=== PATIENT | female | born 1975 | race Hispanic/Latino ===

== ENCOUNTER → 2017-05-31 | Outpatient (CLI) | payer OTHER ==
[~2017-05-31] MED LIST: LIDOCAINE HCL 1% LOCAL INJ 20 ML VIAL ONE
--- NOTE | 2017-05-31 12:44 | Diagnostic Imaging Report ---
PROCEDURE:LUMBAR PUNCTURE COMPARISON:None. 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 Total fluoroscopy time: 0.2 minutes Consultations: No immediate Estimated blood loss: Minimal Blood products administered: None Specimens: 16 cc of cerebrospinal fluid Implants/grafts: None FINDINGS:Informed consent was obtained and documented in the medical record after discussion of risks and benefits. The [employer] radiograph was obtained showing 5 nonrib-bearing lumbar vertebral bodies with no acute osseous abnormalities and relatively preserved intervertebral disc spaces. The patient was placed in the prone position on the fluoroscopy table. The lower back was prepped and draped using usual sterile technique. Local anesthesia was achieved with lidocaine 1%. Using fluoroscopic guidance, a 22 G spine needle was inserted at the L3-L4 intervertebral level until the needle reached the spinal canal with return of clear CSF. Opening pressure is estimated at 14 cm of H20. 16 cc of clear CSF were obtained, and placed into sterile containers and sent to the laboratory for analysis. The needle was removed and a sterile dressing was applied. The patient tolerated the procedure well without immediate complications. CONCLUSION:Successful fluoroscopic guided lumbar puncture. Opening pressure estimated at 14 cm of water. Dictated by: Atul Tuttle M.D. on 05/31/2017 at 12:53 Electronically approved by: Atul Tuttle M.D. on 05/31/2017 at 12:53
--- NOTE | 2017-05-31 12:44 | Diagnostic Imaging Report ---
PROCEDURE:LUMBAR PUNCTURE COMPARISON:None. 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 Total fluoroscopy time: 0.2 minutes Consultations: No immediate Estimated blood loss: Minimal Blood products administered: None Specimens: 16 cc of cerebrospinal fluid Implants/grafts: None FINDINGS:Informed consent was obtained and documented in the medical record after discussion of risks and benefits. The [employer] radiograph was obtained showing 5 nonrib-bearing lumbar vertebral bodies with no acute osseous abnormalities and relatively preserved intervertebral disc spaces. The patient was placed in the prone position on the fluoroscopy table. The lower back was prepped and draped using usual sterile technique. Local anesthesia was achieved with lidocaine 1%. Using fluoroscopic guidance, a 22 G spine needle was inserted at the L3-L4 intervertebral level until the needle reached the spinal canal with return of clear CSF. Opening pressure is estimated at 14 cm of H20. 16 cc of clear CSF were obtained, and placed into sterile containers and sent to the laboratory for analysis. The needle was removed and a sterile dressing was applied. The patient tolerated the procedure well without immediate complications. CONCLUSION:Successful fluoroscopic guided lumbar puncture. Opening pressure estimated at 14 cm of water. Dictated by: Atul Tuttle M.D. on 05/31/2017 at 12:53 Electronically approved by: Atul Tuttle M.D. on 05/31/2017 at 12:53
[2017-05-31 12:57] LABS: APPEARANCE,CSF CLEAR (CLEAR); COLOR,CSF COLORLESS (COLORLESS)
[2017-05-31 12:58] LABS: TUBE NUMBER 3
[2017-05-31 13:03] LABS: WHITE BLOOD CELL,CSF 1 cells/uL (0-5)
[2017-06-03 15:23] LABS: IGG/ALB RATIO CSF 0.14 (0.00-0.25)
[2017-06-03 21:14] LABS: MYELIN BASIC PROTEIN, CSF 2.1 ng/mL (0.0-1.2)
== END ==
LOC: DX 10:06
PROVIDERS: ATTEND Psychiatry & Neurology Clinical Neurophysiology
DX: G37.9 Demyelinating disease of central nervous system, unspecified (principal)
CPT/HCPCS: 36415; 62270; 77003; 81025; 82040; 82042; 82784; 83873; 83916; 84157; 84165; 89051; J2001